=== PATIENT | male | born 1975 | race Caucasian/White ===

== ENCOUNTER → 2016-11-07 | Outpatient (CLI) | payer BC, OTHER ==
--- NOTE | 2016-11-07 07:50 | REP ---
Clinical: Periumbilical pain. Possible hernia. Technique: Real time myers scale ultrasound examination using linear high frequency transducer. Findings: A small fat containing periumbilical hernia is identified with defect measuring approximately 1.2 cm maximal diameter unchanged on Valsalva. Hernia is nonreducible by transducer pressure. Impression: Small fat containing periumbilical hernia. Signed by Palmer Randolph MD 11/07/2016 07:41 A
== END ==
LOC: M RAD 06:12
PROVIDERS: ATTEND Physician Assistant Medical
DX: K42.0 Umbilical hernia with obstruction, without gangrene (principal)

== ENCOUNTER → 2018-01-24 | Outpatient (CLI) | payer BC, OTHER ==
--- NOTE | 2018-01-24 09:00 | REP ---
REASON FOR EXAM: Pain, no trauma. There is mild degenerative change seen involving the 1st metatarsophalangeal joint. There is no acute fracture or destructive osseous lesion. Electronically Signed by Tito Yusuf DO 01/24/2018 11:07 A
[2018-01-24 18:06] LABS: BLOOD UREA NITROGEN 17 MG/DL (7-18); CREATININE FOR GFR 1.21 MG/DL (0.70-1.30); GLOMERULAR FILTRATION RATE > 60.0 (>60); URIC ACID 8.4 MG/DL (3.5-7.2)
== END ==
LOC: M ADAMS 08:32
PROVIDERS: ATTEND Physician Assistant Medical
DX: M19.071 Primary osteoarthritis, right ankle and foot (principal); M79.671 Pain in right foot

== ENCOUNTER → 2018-09-03 | Outpatient (CLI) | payer BC, OTHER ==
--- NOTE | 2018-09-03 18:18 | REP ---
LEFT HAND, FOUR VIEWS: Four views of the left hand are performed. There is no evidence of acute fracture or dislocation. There is a moderate dorsal spur at the base of the 5th distal phalanx. There is mild joint space narrowing at the 5th distal interphalangeal joint. I see no other significant abnormality. 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 No fracture or dislocation. Electronically Signed by Kit Vickers MD 09/03/2018 07:14 P
== END ==
LOC: M ADAMS 17:35
PROVIDERS: ATTEND Physician Assistant
DX: M25.742 Osteophyte, left hand (principal)

== ENCOUNTER → 2019-06-21 | Outpatient (CLI) | payer BC, OTHER ==
--- NOTE | 2019-06-21 19:09 | REP ---
Clinical: Right knee pain Technique: AP, lateral, bilateral oblique and sunrise views right knee . Findings: [place] view demonstrates prepatellar soft tissue swelling. No definite acute patellar fracture is identified although correlation with physical examination and history is recommended to exclude subtle injury. Remainder of the examination appears age-appropriate. Impression: 1. Prepatellar soft tissue swelling is nonspecific and should be correlated with history to exclude the possibility of injury. 2. Otherwise age appropriate examination. Electronically Signed by Palmer Randolph MD 06/21/2019 07:00 P
== END ==
LOC: M ADAMS 11:53
PROVIDERS: ATTEND Physician Assistant
DX: M25.561 Pain in right knee (principal)

== ENCOUNTER → 2021-03-15 | Outpatient (CLI) | payer BC, OTHER ==
[~2021-03-15] MED LIST: VITMTA PO
== END ==
LOC: M LABSMTC 10:13
PROVIDERS: ATTEND Anesthesiology
DX: Z01.812 Encounter for preprocedural laboratory examination (principal); Z20.822 Contact with and (suspected) exposure to COVID-19

== ENCOUNTER 2021-03-20 06:03 | Day surgery (SDC) | payer BC, OTHER ==
[~2021-03-20] VITALS: Ht 182.9 cm; Wt 110.4 kg
[~2021-03-20 06:03] MED LIST changes: +LIDOCAINE 1% MDV 20ML VIAL SQ PRN; +LR 1,000 ML IV ONE; +ceFAZolin SOD 2 GM in IV 1 EA IV ONE
[2021-03-20] MEDS ORDERED: MIDAZOLAM INJ 2MG/2ML VIAL (J2250 PER 1MG) As Ordered ONE (07:11)
[2021-03-20] MEDS ORDERED: HYDROmorphone HCL 2MG/ML 1ML VIAL As Ordered ONE (07:11)
[2021-03-20] MEDS ORDERED: propofoL 200 MG/20 ML VIAL As Ordered ONE (07:11)
[2021-03-20] MEDS ORDERED: BUPIVACAINE HCL 0.25% 10ML VIAL As Ordered ONE (07:11)
[2021-03-20] MEDS ORDERED: fentaNYL 100 MCG/2 ML INJECTION As Ordered ONE (07:11)
[2021-03-20] MEDS ORDERED: dexameTHASONE 4 MG/ML 1ML VIAL (J1100 PER 1MG) As Ordered ONE (07:11)
[2021-03-20] MEDS ORDERED: BUPIVACAINE LIPOSOME/PF 1.3% 20ML VIAL (13.3MG/ML)(EXPAREL)(C9290 PER1MG) As Ordered ONE (07:11)
[2021-03-20] MEDS ORDERED: BUPIVACAINE/EPIN 0.5% 30 ML VIAL As Ordered ONE (07:11)
[2021-03-20] MEDS ORDERED: LIDOCAINE 2% 100MG/5ML SDV (FOR ANES.) As Ordered ONE (07:11)
[2021-03-20] MEDS ORDERED: ROCURONIUM BROMIDE 50 MG/5 ML VIAL As Ordered ONE (07:11)
[2021-03-20] MEDS ORDERED: ONDANSETRON 4MG/2ML VIAL As Ordered ONE (07:11)
[2021-03-20] MEDS ORDERED: KETOROLAC 60MG 2ML VIAL As Ordered ONE (07:11)
[2021-03-20] MEDS ORDERED: ACETAMINOPHEN 1000MG 100ML IV BTL (OFIRMEV) (J0131 PER 10MG) As Ordered ONE (07:21)
[2021-03-20] MEDS ORDERED: ePHEDrine SULFATE 25 MG/5 ML(5MG/ML) SYRINGE As Ordered ONE (07:48)
[2021-03-20] MEDS ORDERED: SUGAMMADEX SODIUM 500 MG/5 ML VIAL (BRIDION) As Ordered ONE (07:52)
[2021-03-20] MEDS ORDERED: ONDANSETRON 4MG/2ML VIAL IV PRN (09:05)
[2021-03-20] MEDS ORDERED: METOCLOPRAMIDE INJ 10MG/2ML VIAL (J2765 PER 1) IV PRN (09:05)
[2021-03-20] MEDS ORDERED: LR 1,000 ML IV SCH (09:05)
[2021-03-20] MEDS ORDERED: oxyCODONE 5MG TAB PO PRN (09:05)
[2021-03-20] MEDS ORDERED: MORPHINE 2 MG/ML 1ML VIAL (J2270) IV PRN (09:05)
[2021-03-20] MEDS ORDERED: fentaNYL 100 MCG/2 ML INJECTION IV PRN (09:05)
[2021-03-20] MEDS ORDERED: NS 1,000 ML IV SCH (09:10)
[2021-03-20] MEDS ORDERED: traMADol 50 MG TAB PO PRN (09:10)
[2021-03-20 10:40] VITALS: BP 157/93
== END 2021-03-20 10:45 | disposition home or self-care (01) ==
LOC: M SDC 06:03
PROVIDERS: ATTEND Surgery
DX: K42.9 Umbilical hernia without obstruction or gangrene (principal); K21.9 Gastro-esophageal reflux disease without esophagitis
CPT/HCPCS: 49585; 88302; C9290; J0131; J0690; J1100; J1170; J1885; J2250; J2405; J3010

== ENCOUNTER → 2021-10-18 | Outpatient (CLI) | payer OTHER ==
[~2021-10-18] MED LIST changes: -LIDOCAINE 1% MDV 20ML VIAL SQ PRN; -LR 1,000 ML IV ONE; -ceFAZolin SOD 2 GM in IV 1 EA IV ONE
== END ==
LOC: M ADAMS 13:55
PROVIDERS: ATTEND Physician Assistant
DX: M25.422 Effusion, left elbow (principal)

== ENCOUNTER → 2021-10-18 | Outpatient (REF) | payer OTHER ==
[2021-10-18 16:50] LABS: BASO # 0.1 10^3/uL (0.0-0.2); BASO % 0.7 % (0.0-1.0); EOS # 0.1 10^3/uL (0.0-0.5); EOS % 1.2 % (0.0-3.0); HEMATOCRIT 42.5 % (42.0-52.0); HEMOGLOBIN 14.2 g/dl (13.5-17.5); LYMPH # 1.6 10^3/uL (1.5-5.0); LYMPH % 21.3 % (24.0-44.0); MEAN CORPUSCULAR HEMOGLOBIN 30.1 pg (27.0-33.0); MEAN CORPUSCULAR HGB CONC 33.4 g/dl (32.0-36.5); MEAN CORPUSCULAR VOLUME 90.2 fl (80.0-96.0); MONO # 0.6 10^3/uL (0.0-0.8); MONO % 8.1 % (2.0-8.0); NEUTROPHILS # 5.1 10^3/uL (1.5-8.5); NEUTROPHILS % 68.2 % (36.0-66.0); PLATELET COUNT, AUTOMATED 245 10^3/uL (150-450); RED BLOOD COUNT 4.71 10^6/uL (4.30-6.10); WHITE BLOOD COUNT 7.5 10^3/uL (4.0-10.0)
[2021-10-18 17:28] LABS: ALBUMIN 4.2 GM/DL (3.2-5.2); ALT/SGPT 80 U/L (12-78); BILIRUBIN,TOTAL 0.8 MG/DL (0.2-1.0); BLOOD UREA NITROGEN 15 MG/DL (7-18); C REACTIVE PROTEIN QUANTITATIV 0.78 MG/DL (0.00-0.30); CALCIUM LEVEL 9.4 MG/DL (8.5-10.1); CARBON DIOXIDE LEVEL 30 MEQ/L (21-32); CHLORIDE LEVEL 103 MEQ/L (98-107); CREATININE FOR GFR 1.14 MG/DL (0.70-1.30); GLOMERULAR FILTRATION RATE > 60.0 (>60); GLUCOSE, FASTING 73 MG/DL (70-100); RHEUMATOID FACTOR QUANT < 10.0 IU/ML (<15.0); SODIUM LEVEL 138 MEQ/L (136-145); TOTAL PROTEIN 7.7 GM/DL (6.4-8.2); URIC ACID 8.4 MG/DL (3.5-7.2)
== END ==
LOC: M SFHCADAM 13:42
PROVIDERS: ATTEND Physician Assistant
DX: M25.40 Effusion, unspecified joint (principal)

== ENCOUNTER → 2021-10-18 | Outpatient (REF) | payer OTHER ==
[2021-10-19 10:48] LABS: CRYSTALS, BODY FLUID CA PYROPHOSPHATE (NONE SEEN); SOURCE, BODY FLUID CRYSTALS LFT ELBOW
[2021-10-19 22:18] LABS: APPEARANCE, BODY FLUID HAZY
== END ==
LOC: M LAB REF 09:43
PROVIDERS: ATTEND Orthopaedic Surgery Adult Reconstructive Orthopaedic Surgery
DX: M70.22 Olecranon bursitis, left elbow (principal)

== ENCOUNTER → 2023-02-27 | Outpatient (REF) | payer BC, OTHER | LOC: M SFHCADAM 14:19 | PROVIDERS: ATTEND Physician Assistant | DX: Z53.9 Procedure and treatment not carried out, unspecified reason (principal) ==

== ENCOUNTER 2023-07-24 09:56 | Day surgery (SDC) | payer BC ==
[~2023-07-24] VITALS: Ht 182.9 cm; Wt 107.5 kg
[~2023-07-24 09:56] MED LIST changes: +ALLO100T PO; +COLC0.6T47 PO
[2023-07-24] MEDS: NS 1,000 ML IV ONE (10:26)
[2023-07-24] MEDS ORDERED: propofoL 200 MG/20 ML VIAL As Ordered ONE (10:51)
[2023-07-24] MEDS ORDERED: LIDOCAINE 2% 100MG/5ML SDV (FOR ANES.) As Ordered ONE (10:51)
[2023-07-24 12:00] VITALS: BP 114/65; TEMP 98.6; O2SAT 98
== END 2023-07-24 12:10 | disposition home or self-care (01) ==
LOC: M OPP 09:56
PROVIDERS: ATTEND Surgery
DX: Z12.11 Encounter for screening for malignant neoplasm of colon (principal); D12.6 Benign neoplasm of colon, unspecified; Z79.899 Other long term (current) drug therapy

== ENCOUNTER → 2024-03-23 | Outpatient (REF) | payer BC | LOC: M SFHCADAM 16:59 | PROVIDERS: ATTEND Family Medicine | DX: R09.81 Nasal congestion (principal) ==

== ENCOUNTER → 2024-10-19 | Outpatient (REF) | payer BC ==
[~2024-10-19] MED LIST changes: -COLC0.6T47 PO; +COLC0.6T53 PO
[2024-10-19 14:11] LABS: ALT/SGPT 48.0 U/L (7.0-40); AST/SGOT 29.0 U/L (<34); CALCIUM LEVEL 9.4 MG/DL (8.5-10.1); CARBON DIOXIDE LEVEL 28.0 MMOL/L (20-31); CHLORIDE LEVEL 103.0 MMOL/L (98-107); CHOLESTEROL LEVEL 222.0 MG/DL (<200); CHOLESTEROL RISK RATIO 5.48 (<5); CREATININE FOR GFR 1.08 MG/DL (0.70-1.30); GLOMERULAR FILTRATION RATE 84.1 (>60); LDL CHOLESTEROL 145.3 MG/DL (<100); NON-HDL-C 181.5 MG/DL; POTASSIUM SERUM 4.3 MMOL/L (3.5-5.1); SODIUM LEVEL 142.0 MMOL/L (136-145); TRIGLYCERIDES LEVEL 181.0 MG/DL (<150)
[2024-10-19 14:39] LABS: ESTIMATED AVERAGE GLUCOSE 117.0 MG/DL (60-110)
== END ==
LOC: M SFHCADAM 07:37
PROVIDERS: ATTEND Physician Assistant
DX: Z13.1 Encounter for screening for diabetes mellitus (principal); Z13.220 Encounter for screening for lipoid disorders; E79.0 Hyperuricemia without signs of inflammatory arthritis and tophaceous disease